=== PATIENT | male | born 1985 | race Caucasian/White ===

== ENCOUNTER 2022-08-02 10:41 | Emergency (ER) | payer BC, SELFPAY ==
[2022-08-02 10:43] VITALS: BP 129/88; PULSE 120; RESP 18; TEMP 37.7; O2SAT 96; BMI 37.6
--- NOTE | 2022-08-02 11:12 | CRLHL7_ITS ---
For Patients: As a result of the Century Cures Act, medical imaging exams and procedure reports are released immediately into your electronic medical record. You may view this report before your referring provider. If you have questions, please contact your health care provider. INDICATION: Right upper quadrant pain TECHNIQUE: Ultrasound abdomen limited. Sonographic images of the right upper quadrant were obtained using zelaya-scale and color Doppler images. COMPARISON: None FINDINGS: Liver: Normal in size and echotexture. No masses. No intrahepatic biliary dilatation. Main portal vein measures 1.1 centimeter. Gallbladder: No stones or sludge. Normal wall thickness. Possible trace pericholecystic fluid. Common bile duct: 5 mm. Pancreas: Normal. Right kidney: 10.6 cm. Normal echotexture and cortex. No masses, stones, or hydronephrosis. Vasculature: Proximal abdominal aorta and IVC are normal. IMPRESSION: Possible trace pericholecystic fluid. Normal gallbladder and common bile duct. Dictated by Artie Rock MD @ 08/02/2022 12:54:53 PM (Electronically Signed)
--- NOTE | 2022-08-02 11:25 | ED.ABDPAIN ---
HPI - Abdominal Pain General Date Seen: 08/02/22 Chief Complaint: Abdominal Pain Stated Complaint: Upper abdominal pain Time Seen by Provider: 08/02/22 10:44 Source: patient Mode of arrival: ambulatory Limitations: no limitations History of Present Illness HPI narrative: Patient is a 36-year-old gentleman who presents here with epigastric discomfort, he has had this now on off for the past 36-48 hours, this morning it became worse common his epigastric region, he almost felt like there is a cramping associated with a, much like before when he was constipated. Really struggle with constipation but has had episodes before where this occurred had normal bowel movements the last few days and today had a normal bowel movement, almost vomited when he tried some Tums earlier today, but has had no vomiting but has felt nauseous. No history of fevers chills or sweats, no previous history of much the same, denies taking any chronic medications notable, quit smoking/chewing 2 weeks ago, uses occasional alcohol more on the weekends, denies any drug use, on no chronic medications, no history of any abdominal operations, History of being in the [employer], previous toe surgery, works locally, single father, distress associated with this. No history of weight loss, and fevers chills or sweats, family history of coronary disease in his father, is 40s, mother has a history of cancer, cervical and breast. MD elicited complaint: abdominal pain Related Data Previous Rx's Medication Instructions Recorded omeprazole 20 mg capsule,delayed 20 mg PO DAILY #30 caps 08/02/22 release Allergies Allergy/AdvReac Type Severity Reaction Status Date / Time No Known Drug Allergies Allergy Verified 08/02/22 13:49 Review of Systems Status of ROS Reports: 10 or more systems reviewed and unremarkable except as noted in History and below [facility] Social History Smoking Status: Smoker, status unknown Do you use any of these nicotine containing products: None How often do you have a drink containing alcohol: never AUDIT-C Alcohol total score: 0 Exam Narrative: Exam Narrative: Patient is seen and assessed, nontoxic in room 3, pupils are equal round reactive to light, no scleral icterus redness, TMs are normal oropharynx is normal the cranial nerves 3-12 are normal his chest is clear bilaterally with no wheezing crackles noted easy respirations, heart sounds no clicks murmurs or gallops, no tenderness to palpation, mildly to moderately tender over the epigastrium, with really no peritoneal signs, positive right upper quadrant pain on palpation but worse in the epigastric region. I would say this is a positive Stout sign no organomegaly, obese, some Street I in his lower abdomen, no lower abdominal discomfort bowel sounds are normal, no CVA tenderness, moves all extremities independently and well, proximal and distal muscle groups are normal, sensations normal. Const: Vital Signs, click to edit/add: Vital Signs - 24 hr 08/02/22 10:43 08/02/22 13:10 08/02/22 15:56 Temperature 99.9 F H Pulse Rate [Right Pulse Oximeter] 120 H 96 Respiratory Rate 18 18 Blood Pressure [Ri ght Upper Arm] 129/88 123/85 127/66 Pulse Oximetry 96 96 Oxygen Delivery Me thod Room Air Room Air Course Course Hospital Course: Went back and discussed with the patient he was sleeping he is having no more pain, I do believe this is a little bit of possibly reflux causing his discomfort he is under lot of stress, would suggest using Prilosec 20 mg a day for the next 30 days in avoidance of use of any acid causing issues that he may adjust himself. We talked about worsening pain, signs and symptoms, went over the fact that his blood test showed the very mild rise in his white blood cell count, and a CT scan was otherwise normal he was comfortable this, we went over signs and symptoms of worsening and he will read return here if these occur. Vital Signs Vital signs: Initial Vital Signs Temperature 99.9 F H 08/02/22 10:43 Temperature Source Temporal Artery Scan 08/02/22 10:43 Pulse Rate 120 H 08/02/22 10:43 Respiratory Rate 18 08/02/22 10:43 Blood Pressure 129/88 08/02/22 10:43 Blood Pressure Mean 101 08/02/22 10:43 Blood Pressure Position Sitting 08/02/22 10:43 Pulse Oximetry 96 08/02/22 10:43 Oxygen Delivery Method Room Air 08/02/22 10:43 Vital Signs Temperature 99.9 F H 08/02/22 10:43 Pulse Rate 120 H 08/02/22 10:43 Respiratory Rate 18 08/02/22 10:43 Blood Pressure 129/88 03/30/23 10:43 Pulse Oximetry 96 08/02/22 10:43 Oxygen Delivery Method Room Air 08/02/22 10:43 Temperature 99.9 F H 08/02/22 10:43 Pulse Rate 96 08/02/22 13:10 Respiratory Rate 18 08/02/22 13:10 Blood Pressure 127/66 08/02/22 15:56 Pulse Oximetry 96 08/02/22 13:10 Oxygen Delivery Method Room Air 08/02/22 13:10 MDM - Abdominal Pain MDM Narrative Medical decision making narrative: During this evaluation of this patient I considered multiple differential diagnosis is which included the life-threatening such as appendicitis, aortic aneurysm, mesenteric ischemia, bowel perforation, volvulus, and bowel obstruction. Other differential diagnosis is include but are not limited to cholecystitis, pancreatitis, hepatitis, gastritis, GERD, diverticulitis, peptic ulcer disease, pyelonephritis/UTI, renal colic/stone, testicular torsion as well as other acute scrotal processes, inflammatory bowel disease, as well as other etiologies Medical Records Attestation: I reviewed the patient's medical records. Lab Data Attestation: I reviewed the patient's lab results. Labs: Lab Results 08/02/22 08/02/22 08/02/22 Range/Units 11:11 11:40 12:50 WBC 11.20 H (4.50-11.00) K/uL RBC 6.37 H (4.30-5.90) m/uL Hgb 19.0 H (13.5-17.5) gm/dL Hct 53.7 H (37.0-53.0) % MCV 84 (80-100) fL MCH 30 (26-34) pg MCHC 35 (32-36) gm/dL RDW Coeff of Pauline 12.4 (11.5-15.5) % Plt Count 249 (140-440) K/uL Neut % (Auto) 85.5 H (42.0-72.0) % Lymph % (Auto) 6.8 L (20-44) % [place] % (Auto) 6.6 (0.0-11.0) % Eos % (Auto) 0.7 (0.0-7.0) % Baso % (Auto) 0.2 (0.0-3.0) % Neut # (Auto) 9.60 H (1.7-7.0) K/uL Lymph # (Auto) 0.80 L (0.90-2.90) K/uL [place] # (Auto) 0.70 (0.00-0.90) K/UL Eos # (Auto) 0.10 (0.00-0.50) K/uL Baso # (Auto) 0.00 (0.00-0.30) K/uL Sodium 141 (135-149) mmol/L Potassium 4.3 (3.6-5.1) mmol/L Chloride 112 (96-114) mmol/L Carbon Dioxide 21 (20-32) mmol/L BUN 17 (5-24) mg/dL Creatinine 0.6 (0.5-1.5) mg/dL Estimated Creat Clear 159.13 Estimated GFR 128 ml/min Glucose 99 (60-115) mg/dL Calcium 9.4 (8.4-10.6) mg/dL Total Bilirubin 0.7 (0.1-1.5) mg/dL Direct Bilirubin 0.1 (0.0-0.5) mg/dL AST 25 (12-35) U/L ALT 37 (4-50) U/L Alkaline Phosphatase 51 (40-150) U/L C-Reactive Protein 0.7 (0.5-1.0) mg/dL Total Protein 7.8 (6.0-8.3) g/dL Albumin 4.6 (3.3-5.0) g/dL Amylase 77 (18-89) U/L Lipase 83 (23-300) U/L Urine Color Yellow (Yellow) Urine Appearance Clear (Clear) Urine pH 5.5 (5.0-8.5) Ur Specific [place] 1.020 (1.000-1.030) Urine Protein Negative (Negative) Urine Glucose (UA) Negative (Negative) Urine Ketones Negative (Negative) Urine Blood Negative (Negative) Urine Nitrite Negative (Negative) Urine Bilirubin Negative (Negative) Urine Urobilinogen 0.2 (0.2-1.0) Ur Leukocyte Esterase Negative (Negative) Urine RBC 0-2 (0-2) Urine WBC 0-2 (0-5) Ur Squamous Epith Cells None (None-Few) Urine Bacteria None (None) Urine Mucus Few A (None) POC Troponin I 0.00 L (0.01-0.04) ng/ml Imaging Data CT scan - abdomen: Attestation: I have reviewed the pertinent imaging results. My impression: Negative acute Radiologist's impression: Patient: REBEKAH BA Facility:?[facility] Patient ID:?[id number] Site Patient ID:?[id number]. Site :?[id number] Study:?CT Abdomen/Pelvis W/ 118CC [id number]/30/2023 1:58:26 PM Ordering Physician:Rene Light Final Report: INDICATION: Abdominal pain, elevated white blood cell. TECHNIQUE: CT abdomen and pelvis acquired with 118 cc Isovue 370. IV contrast. COMPARISON: None. FINDINGS: Lower chest: Scattered atelectasis. Liver: Mildly decreased hepatic attenuation which could suggest steatosis. Gallbladder and bile ducts: Unremarkable. No stones or inflammation. No biliary dilatation. Pancreas: Unremarkable. No mass or inflammation. Spleen: Unremarkable. Normal in size. No masses. Adrenal glands: Unremarkable. No nodules. Kidneys: Unremarkable. No suspicious masses, stones, or hydronephrosis. GI tract: Unremarkable. Normal in caliber. No sign of mass or inflammation. Normal appendix. Vasculature: Abdominal aorta is normal in caliber. Mesenteric arteries are patent. Lymph nodes: No lymphadenopathy. Peritoneum/Abdominal Wall: Unremarkable. No sign of mass or infiltration. No free air or significant free fluid. Pelvis: Unremarkable. Bones: Unremarkable for age. IMPRESSION: No acute intra-abdominal/pelvic abnormality. Please note that all CT scans at this facility use dose modulation, iterative reconstruction, and/or weight-based dosing when appropriate to reduce radiation dose to as low as reasonably achievable. Dictated by Eliot Ashley MD @ 08/02/2022 3:42:14 PM (Electronic Signature) Discharge Plan Discharge Clinical Impression: Abdominal pain Patient Disposition: Home, Self-Care Condition: Stable Instructions: Abdominal Pain (ED) Additional Instructions: I think I would use the Prilosec 20 mg a day for the next 3-4 weeks, this can help stop the stomach acid, stress makes this worse, alcohol, any sort of tobacco products and caffeinated beverages. 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 Return here if increasing abdominal pain or other issues, I do think it looks like on CT scan that this may be a bit of a enteritis (flu like illness) also in her abdomen. I would not be shocked if you had a little bit of diarrhea over the next couple days. Activity Level: No Restrictions and Light activity Discharge Diet: Full Liquid Prescriptions: New omeprazole 20 mg capsule,delayed release(DR/EC) 20 mg PO DAILY Qty: 30 2RF Follow Up/Referrals: Provider,Not a Local [Primary Care Provider] - Stand Alone Forms: [employer] Info Instructions
[2022-08-02 11:51] LABS: Basophils Percent Auto 0.2 % (0.0-3.0); Eosinophils Percent Auto 0.7 % (0.0-7.0); Hematocrit 53.7 % (37.0-53.0); Immature Granulocytes Pct Auto 0.2 %; Lymphocytes Percent Auto 6.8 % (20-44); Mean Corpuscular HGB Conc 35 gm/dL (32-36); Mean Corpuscular Hemoglobin 30 pg (26-34); Mean Corpuscular Volume 84 fL (80-100); Monocytes Percent Auto 6.6 % (0.0-11.0); Neutrophils Percent Auto 85.5 % (42.0-72.0); Platelet Count* 249 K/uL (140-440); RDW Coefficient of Variation % 12.4 % (11.5-15.5); Red Blood Count 6.37 m/uL (4.30-5.90)
[2022-08-02 11:53] LABS: Slide Review Reflex No
[2022-08-02 12:05] LABS: Albumin* 4.6 g/dL (3.3-5.0)
[2022-08-02 12:07] LABS: Chloride* 112 mmol/L (96-114); Potassium* 4.3 mmol/L (3.6-5.1); Sodium* 141 mmol/L (135-149)
[2022-08-02 12:08] LABS: Alkaline Phosphatase* 51 U/L (40-150); Aspartate Amino Transferase* 25 U/L (12-35); Bilirubin Direct* 0.1 mg/dL (0.0-0.5); Bilirubin Total* 0.7 mg/dL (0.1-1.5); Total Protein* 7.8 g/dL (6.0-8.3)
[2022-08-02 12:09] LABS: Alanine Aminotransferase* 37 U/L (4-50); Amylase* 77 U/L (18-89); Creatinine* 0.6 mg/dL (0.5-1.5); Est. Creatinine Clearance* 159.13; Estimated Glomerular Filt Rate 128 ml/min; Lipase* 83 U/L (23-300)
[2022-08-02 12:10] LABS: Blood Urea Nitrogen* 17 mg/dL (5-24); Calcium* 9.4 mg/dL (8.4-10.6); Carbon Dioxide* 21 mmol/L (20-32); Glucose* 99 mg/dL (60-115)
[2022-08-02 12:13] LABS: C Reactive Protein* 0.7 mg/dL (0.5-1.0)
[2022-08-02] MEDS: 0.9 % SODIUM CHLORIDE 1000 ml 1,000 ML IV (12:48)
[2022-08-02] MEDS: ONDANSETRON 2 MG/ML inj 4 MG IVP (12:49)
[2022-08-02] MEDS: PANTOPRAZOLE SODIUM 40 MG INJ IVP (12:49)
[2022-08-02 13:00] LABS: Appearance Urine Clear (Clear); Bilirubin Urine Negative (Negative); Blood Urine Negative (Negative); Color Urine Yellow (Yellow); Glucose Urine Negative (Negative); Ketones Urine Negative (Negative); Leukocyte Esterase Urine Negative (Negative); Nitrite Urine Negative (Negative); Protein Urine Negative (Negative); Urobilinogen Urine 0.2 (0.2-1.0); pH Urine 5.5 (5.0-8.5)
[2022-08-02 13:10] VITALS: BP 123/85; PULSE 96; RESP 18; O2SAT 96
[2022-08-02 13:12] LABS: Mucus Urine Few; RBC Urine 0-2 (0-2); WBC Urine 0-2 (0-5)
--- NOTE | 2022-08-02 13:16 | CRLHL7_ITS ---
For Patients: As a result of the Century Cures Act, medical imaging exams and procedure reports are released immediately into your electronic medical record. You may view this report before your referring provider. If you have questions, please contact your health care provider. INDICATION: Abdominal pain, elevated white blood cell. TECHNIQUE: CT abdomen and pelvis acquired with 118 cc Isovue 370. IV contrast. COMPARISON: None. FINDINGS: Lower chest: Scattered atelectasis. Liver: Mildly decreased hepatic attenuation which could suggest steatosis. Gallbladder and bile ducts: Unremarkable. No stones or inflammation. No biliary dilatation. Pancreas: Unremarkable. No mass or inflammation. Spleen: Unremarkable. Normal in size. No masses. Adrenal glands: Unremarkable. No nodules. Kidneys: Unremarkable. No suspicious masses, stones, or hydronephrosis. GI tract: Unremarkable. Normal in caliber. No sign of mass or inflammation. Normal appendix. Vasculature: Abdominal aorta is normal in caliber. Mesenteric arteries are patent. Lymph nodes: No lymphadenopathy. Peritoneum/Abdominal Wall: Unremarkable. No sign of mass or infiltration. No free air or significant free fluid. Pelvis: Unremarkable. Bones: Unremarkable for age. IMPRESSION: No acute intra-abdominal/pelvic abnormality. Please note that all CT scans at this facility use dose modulation, iterative reconstruction, and/or weight-based dosing when appropriate to reduce radiation dose to as low as reasonably achievable. Dictated by Eliot Ashley MD @ 08/02/2022 3:42:14 PM (Electronically Signed)
[2022-08-02 15:56] VITALS: BP 127/66
== END 2022-08-02 15:58 | disposition home or self-care (01) ==
PROVIDERS: Emergency Provider Family Medicine
DX: R10.13 Epigastric pain (principal)
CPT/HCPCS: 36415; 74177; 76705; 80048; 80076; 81001; 82150; 83690; 84484; 85025; 86140; 93005; 96374; 96375; 99284; 99285; C9113; J2405; J7030; Q9967

== ENCOUNTER 2023-06-10 02:06 | Emergency (ER) | payer BC, SELFPAY ==
[2023-06-10 02:07] VITALS: BP 167/98; PULSE 85; RESP 20; TEMP 36.6; O2SAT 99; BMI 33.4
[2023-06-10 02:15] VITALS: O2SAT 99
--- NOTE | 2023-06-10 02:22 | ED_ITS ---
HPI - General Adult General Chief complaint: Unspecified Complaint, Adult Stated complaint: Racing Heart Time Seen by Provider: 06/10/23 02:06 Source: patient Mode of arrival: ambulatory Limitations: no limitations History of Present Illness HPI narrative: 37-year-old male with no significant personal past medical history presents the ED with feeling of racing heart 1 hour prior to arrival it is since resolved. Lasted a few minutes, happened at rest while he was lying down in bed. Denies anxiety or stress at the time. No exertion. No alcohol tonight. He checked his watching it told him that his heart rate was between 110 and 120 beats per minute. It is an updated Apple watch that would have an arrhythmia detector, did not alert him to an arrhythmia. No history of thyroid disease. No personal history of heart attack her hypertension. Smoker. He states that he has actually been getting his health and check and is managed to lose some weight through diet and exercise. No fevers or recent illness. No chest pain. No severe shortness of breath or neurological changes. He says that he was worried because his father had a heart attack at age 40 is what he told the nurse, he tells me that it was a stroke. Past medical history benign per his report. No major long-term health problems. No prescription medications, no recent surgeries. No allergies. ROS is notable for the sensation of racing heart as described above which is now resolved, otherwise denies times 12 systems. Related Data Home Medications Medication Instructions Recorded Confirmed No Known Home Medications 06/10/23 06/10/23 Allergies Allergy/AdvReac Type Severity Reaction Status Date / Time No Known Drug Allergies Allergy Verified 06/10/23 02:09 [facility] Social History Smoking Status: Never smoker Do you use any of these nicotine containing products: None Second hand tobacco smoke exposure: No How often do you have a drink containing alcohol: monthly or less AUDIT-C Alcohol total score: 1 Non-prescribed substance use: denies use Exam Const: Vital Signs, click to edit/add: Vital Signs - 24 hr 06/10/23 02:07 Temperature 97.9 F Pulse Rate [Right Pulse Oximeter] 85 Respiratory Rate 20 Blood Pressure [Ri ght Upper Arm] 167/98 H Pulse Oximetry 99 Oxygen Delivery Me thod Room Air Documenting provider has reviewed patient's vital signs: yes Common normals: no apparent distress and alert General appearance: cooperative and well kempt Orientation/consciousness: Yes awake Other: Anxious, but answers questions appropriately. No to signs of intoxication or impairment. HENMT: Common normals: normocephalic Head and scalp: normocephalic Face and sinus: normal facial exam Mouth: oral and palatal mucosa normal Throat: posterior oropharynx normal Eye: Common normals: conjunctivae normal General eye: normal appearance of both eyes Conjunctiva: conjunctiva(e) normal Neck & C-Spine: Common normals: full ROM and no lymphadenopathy Resp: Common normals: normal respiratory effort, no use of accessory muscles and clear to auscultation bilaterally Effort & inspection: able to speak in complete sentences Auscultation: clear to auscultation bilaterally Cardio: Common normals: regular rate, regular rhythm, S1 normal heart sound, S2 normal heart sound and no murmurs Rate: regular rate Rhythm: regular rhythm Heart sounds: S1 normal and S2 normal GI: Common normals: Normal to inspection, nondistended, normoactive bowel sounds present, soft to palpation, non-tender, no hepatosplenomegaly and no masses Palpation: soft and no hepatosplenomegaly Neuro: Sensorium/orientation: awake and alert Speech: speech normal Motor exam: no tremor noted Psych: Appearance: well kempt Attitude: engaged Insight: fair Judgement: judgment good Skin: Common normals: no rashes or lesions noted General skin exam: no rashes or lesions noted Course Course ED Course: Initial vital signs reassuring. Only risk factor for heart disease is smoking status. Initial EKG will be performed, watched on a traffic monitor specialist. Recommended checking some basic blood work, electrolytes, CBC, troponin. I do not recommend chest x-ray if his EKG is normal. Counseled patient that there could be an underlying arrhythmia that I am not able to detect here. I would recommend primary care follow-up if our workup is benign for a Holter monitor placement, checking of cholesterol and additional workup. Reevaluation(s) Time of Reevaluation #1: 03:08 Reevaluation #1: Patient remaining asymptomatic here in the ED. no abnormal heart rhythm or tachycardia noted on cardiac monitors. All labs normal. Findings reviewed with patient. Counseled on discharge plan. Recommended primary care follow-up, possible Holter monitor, checking of thyroid and cholesterol. Encouraged reduction of tobacco. Encouraged reduction of caffeine afternoon. Alarm symptoms reviewed that would warrant ED presentation and he verbalizes understanding and agreement. Vital Signs Vital signs: Initial Vital Signs Temperature 97.9 F 06/10/23 02:07 Temperature Source Temporal Artery Scan 06/10/23 02:07 Pulse Rate 85 06/10/23 02:07 Pulse Rhythm Regular 06/10/23 02:07 Pulse Strength 3+ Normal 06/10/23 02:07 Respiratory Rate 20 06/10/23 02:07 Blood Pressure 167/98 H 06/10/23 02:07 Blood Pressure Mean 121 H 06/10/23 02:07 Blood Pressure Position Sitting 06/10/23 02:07 Pulse Oximetry 99 06/10/23 02:07 Oxygen Delivery Method Room Air 06/10/23 02:07 Vital Signs Temperature 97.9 F 06/10/23 02:07 Pulse Rate 85 06/10/23 02:07 Respiratory Rate 20 06/10/23 02:07 Blood Pressure 167/98 H 06/10/23 02:07 Pulse Oximetry 99 06/10/23 02:07 Oxygen Delivery Method Room Air 06/10/23 02:07 Temperature 97.9 F 06/10/23 02:07 Pulse Rate 85 06/10/23 02:07 Respiratory Rate 20 06/10/23 02:07 Blood Pressure 167/98 H 06/10/23 02:07 Pulse Oximetry 99 06/10/23 02:07 Oxygen Delivery Method Room Air 06/10/23 02:07 Medical Decision Making Lab Data Lab results reviewed: Yes I reviewed the patient's lab results Lab results narrative: All reassuring. Labs: Lab Results 06/10/23 06/10/23 Range/Units 02:35 02:40 WBC 9.13 (4.50-11.00) K/uL RBC 5.48 (4.30-5.90) m/uL Hgb 16.3 (13.5-17.5) gm/dL Hct 46.7 (37.0-53.0) % MCV 85 (80-100) fL MCH 30 (26-34) pg MCHC 35 (32-36) gm/dL RDW Coeff of Pauline 12.4 (11.5-15.5) % Plt Count 270 (140-440) K/uL Neut % (Auto) 53.8 (42.0-72.0) % Lymph % (Auto) 33.3 (20-44) % [place] % (Auto) 11.0 (0.0-11.0) % Eos % (Auto) 0.8 (0.0-7.0) % Baso % (Auto) 0.3 (0.0-3.0) % Neut # (Auto) 4.92 (1.7-7.0) K/uL Lymph # (Auto) 3.04 H (0.90-2.90) K/uL [place] # (Auto) 1.00 H (0.00-0.90) K/UL Eos # (Auto) 0.07 (0.00-0.50) K/uL Baso # (Auto) 0.03 (0.00-0.30) K/uL Abs Immat Gran (auto) 0.07 (0.00-0.30) K/uL Imm/Tot Granulo (auto) 0.8 % Sodium 143 (135-149) mmol/L Potassium 3.3 L (3.6-5.1) mmol/L Chloride 110 (96-114) mmol/L Carbon Dioxide 23 (20-32) mmol/L Anion Gap 10 (7-15) mEq/L BUN 15 (5-24) mg/dL Creatinine 0.7 (0.5-1.5) mg/dL Estimated Creat Clear 135.09 Estimated GFR 122 ml/min Glucose 112 (60-115) mg/dL Calcium 9.2 (8.4-10.6) mg/dL POC Troponin I 0.00 L (0.01-0.04) ng/ml ECG Data Attestation: I personally reviewed and interpreted this ECG as follows: Prior ECG tracings: not available for review Interpretation: Normal sinus rhythm, rate of 80. Normal intervals, axis. No significant ST or T-wave abnormalities. Normal EKG. Discharge Plan Discharge Clinical Impression: Palpitation Patient Disposition: Home, Self-Care Condition: Improved Instructions: Heart Palpitations (DC) Additional Instructions: As discussed, thankfully there are no signs of heart attack or abnormal heart rhythm today. It can be normal for your heart rate to fluctuate between 40 and 160. We do get concern if the heart rate is over 180 or if there are signs of an abnormal heart rhythm. I would recommend that you continue wearing an Apple watch to monitor your heart rate. Keep a watch on symptoms such as severe shortness of breath, lightheadedness, passing out in the setting of your heart rate. I would recommend that you make a follow-up appointment with a primary care physician for a physical. They will check your cholesterol and thyroid. They will also decide if you should have a Holter monitor which is a where bowl heart monitor to help look for any signs of abnormal heart rhythm. In the meantime, you do not have any limitations on her activities but I would recommend for your long-term health that you discontinue any tobacco products. Your more likely to have this feeling of racing heart in the setting of caffeine and or energy drink usage. For most people, the risk increases in the evenings. Consider eliminating caffeine after noon. Activity Level: No Restrictions Discharge Diet: Regular Prescriptions: No Action No Known Home Medications Follow Up/Referrals: Provider,Not a Local [Primary Care Provider] - Stand Alone Forms: [employer] Info Instructions
--- OUTSIDE RECORDS SUMMARY | 2023-06-10 02:27 | XMS_ITS | Clinical Summary ---
Author Name Unknown Organization [facility] Address [place], [place] [address] Care Team Providers Care Tariff Compiler Name Role Phone Pcp, No Primary Care Provider Unavailabl e Allergies No known active allergies Medications Medication Sig Dispensed Refills Start Date End Date Status sertraline (ZOLOFT) 50 mg tabletIndications:Anx iety Take 1 Tablet (50 mg) by mouth every morning. 30 Tablet 0 01/09/2023 Active Active Problems Problem Noted Date Diagnosed Date Obesity, Class II, BMI 35-39.9 10/03/2022 Immunizations Name Administration Dates Next Due Influenza, IIV4 03/08/2015 Tdap 04/20/2014 Family History Medical History Relation Name Comments Diabetes Father Hypertension Father Diabetes Mother Hypertension Mother Relation Name Status Comments Father Mother Social History Tobacco Use Types Packs/Day Years Used Date Smoking Tobacco: Some Days Cigarettes Last attempted to quit: 12/03/2013 Smokeless Tobacco: Current Chew Tobacco Cessation:Ready to Q uit: Not Asked; Counseling Given: Not Answered Alcohol Use Standard Drinks/Week Comments Yes 0 (1 standard drink = 0.6 oz pur e alcohol) rare PHQ-2 Answer Date Recorded PHQ-2 TOTAL SCORE 1 12/24/2022 Social Connections Answer Date Recorded Frequency of Communication with Friends and Fami ly 0 10/03/2022 Financial Resource Strain Answer Date R ecorded Difficulty of Paying Living Expenses 3 10/03/2022 Difficulty of Paying Living Expenses Not on file 10/03/2022 Food Insecurity Answer Date Recorded Worried About Running Out of Food in the Last Ye ar 1 10/03/2022 Transportation Needs Answer Date Record ed Lack of Transportation (Medical) 1 10/03/2022 Housing Stability Answer Date Recorded Unable to Pay for Housing in the Last Year 1 10/03/2022 Sex and Gender Information Value Date Recorded Sex Assigned at Not on file Gender Identity Not on file Sexual Orientation Not on file Obstetrics History Last Filed Vital Signs Vital Sign Reading Time Taken Comments Blood Pressure 142/94 12/24/2022 7:38 AM CDT Pulse 84 12/24/2022 7:38 AM CDT Temperature 36.3 ??C (97.3 ??F) 10/16/2019 7:34 PM CD T Respiratory Rate 18 10/16/2019 8:58 PM CDT Oxygen Saturation 99% 10/03/2022 1:30 PM CDT Inhaled Oxygen Concentration - - Weight 105.2 kg (232 lb) 12/24/2022 7:38 AM CDT Height 170.2 cm (5' 7) 12/24/2022 7:38 AM CDT Body Mass Index 36.34 12/24/2022 7:38 AM CDT Plan of Treatment Health Maintenance Due Date Last Done Comments COVID-19 vaccine series (#1) 05/27/1986 Pneumococcal series for age 6-64 (1 of 2 - PCV) 11/25/1991 HIV for age 15-65 2000 Hepatitis C screening for ag e 18-79 11/25/2003 Lipids for age 35-44 2020 Influenza for age 9-49 01/04/2023 03/08/2015 BMI (ht and wt on same day) for age 18+ 12/25/2023 12/24/2022, 10/03/2022, 04/09/2018, Additional history exists Depression screening for age 12+ 12/25/2023 12/25/19 23 Tetanus booster 04/20/2024 04/20/2014 Tdap Completed 04/20/2014 Care Teams Tariff Compiler Relationship Specialty Start Date End Date Pcp, No . PCP - General 10/16/19
[2023-06-10 02:45] LABS: Basophils Absolute Auto 0.03 K/uL (0.00-0.30); Basophils Percent Auto 0.3 % (0.0-3.0); Eosinophils Absolute Auto 0.07 K/uL (0.00-0.50); Eosinophils Percent Auto 0.8 % (0.0-7.0); Hematocrit 46.7 % (37.0-53.0); Hemoglobin* 16.3 gm/dL (13.5-17.5); Immature Granulocytes Abs Auto 0.07 K/uL (0.00-0.30); Immature Granulocytes Pct Auto 0.8 %; Lymphocytes Absolute Auto 3.04 K/uL (0.90-2.90); Lymphocytes Percent Auto 33.3 % (20-44); Mean Corpuscular HGB Conc 35 gm/dL (32-36); Mean Corpuscular Hemoglobin 30 pg (26-34); Mean Corpuscular Volume 85 fL (80-100); Neutrophils Absolute Auto 4.92 K/uL (1.7-7.0); Neutrophils Percent Auto 53.8 % (42.0-72.0); Platelet Count* 270 K/uL (140-440); RDW Coefficient of Variation % 12.4 % (11.5-15.5); Red Blood Count 5.48 m/uL (4.30-5.90); White Blood Count* 9.13 K/uL (4.50-11.00)
[2023-06-10 02:47] LABS: Slide Review Reflex No
[2023-06-10 02:56] LABS: Chloride* 110 mmol/L (96-114)
[2023-06-10 02:57] LABS: Potassium* 3.3 mmol/L (3.6-5.1); Sodium* 143 mmol/L (135-149)
[2023-06-10 02:59] LABS: Creatinine* 0.7 mg/dL (0.5-1.5); Est. Creatinine Clearance* 135.09; Estimated Glomerular Filt Rate 122 ml/min
[2023-06-10 03:00] LABS: Anion Gap 10 mEq/L (7-15); Blood Urea Nitrogen* 15 mg/dL (5-24); Calcium* 9.2 mg/dL (8.4-10.6); Carbon Dioxide* 23 mmol/L (20-32); Glucose* 112 mg/dL (60-115)
[2023-06-10 03:10] VITALS: BP 151/97; PULSE 68; RESP 20; TEMP 36.6; O2SAT 99
[2023-06-10 03:12] VITALS: BP 151/97; PULSE 68; RESP 20; TEMP 36.6
== END 2023-06-10 03:12 | disposition home or self-care (01) ==
PROVIDERS: Emergency Provider Family Medicine
DX: R00.2 Palpitations (principal)
CPT/HCPCS: 36415; 80048; 84484; 85025; 93005; 94761; 99284